=== PATIENT | female | born 1960 | race Caucasian/White ===

== ENCOUNTER → 2020-04-26 10:14 | Outpatient (BNVA) | payer MEDICAID, SELFPAY | PROVIDERS: Visit Provider Nurse Practitioner Family | DX: E11.42 Type 2 diabetes mellitus with diabetic polyneuropathy (principal); E78.2 Mixed hyperlipidemia; I10 Essential (primary) hypertension; M19.90 Unspecified osteoarthritis, unspecified site; F32.9 Major depressive disorder, single episode, unspecified; Z86.19 Personal history of other infectious and parasitic diseases | CPT/HCPCS: 80053; 80061; 83036; 84443; 85025 ==

== ENCOUNTER → 2020-05-21 15:00 | Outpatient (BNVA) | payer MEDICAID, SELFPAY | PROVIDERS: Visit Provider Internal Medicine | DX: B19.20 Unspecified viral hepatitis C without hepatic coma (principal); Z86.19 Personal history of other infectious and parasitic diseases; Z12.11 Encounter for screening for malignant neoplasm of colon; R10.13 Epigastric pain; R10.11 Right upper quadrant pain; F17.219 Nicotine dependence, cigarettes, with unspecified nicotine-induced disorders | CPT/HCPCS: 82105; 87522 ==

== ENCOUNTER → 2020-06-04 11:59 | Outpatient (BNVA) | payer MEDICAID, SELFPAY | PROVIDERS: Visit Provider Internal Medicine | DX: Z11.59 Encounter for screening for other viral diseases (principal) | CPT/HCPCS: 87635 ==

== ENCOUNTER 2020-06-07 07:30 | Day surgery (SDC) | payer MEDICAID, SELFPAY ==
[2020-06-06 08:14] VITALS: BMI 28.3
[2020-06-07 07:59] VITALS: BP 135/87; PULSE 72; RESP 16; TEMP 36.8; O2SAT 99
[2020-06-07] MEDS: sodium chloride 0.9% 1,000 ML 30 ML IV (08:16)
--- NOTE | 2020-06-07 08:23 | ANES.PREANE2 ---
Pre-Anesthetic Assessment Pre-Anesthetic Assessment: Height/Weight: Height 1.65 m Weight 77.111 kg Temp Pulse Resp BP Pulse Ox 98.2 F 72 16 135/87 99 06/07/20 07:59 06/07/20 07:59 06/07/20 07:59 06/07/20 07:59 06/07/20 07:59 Preop Diagnosis: e c Proposed Procedure: Operation Date: 06/07/20 09:00 Proposed Procedures p EGD/colon 13504 [id number] R10.13 Z12.11(Not Applicable) - Trung Charles MD s Colonoscopy(Not Applicable) - Trung Charles MD Familial anesthetic complications: None Was Beta Pelon taken within 24 hours: N/A Last intake: Intake Last Liquid Date 06/06/20 Last Liquid Time 22:00 Last Solid Date 06/05/20 Last Solid Time 22:00 Social: Social History: Tobacco Exam: Pre-Anes Outpt Exam: alert, oriented x 3, clear to auscultation bilaterally and regular rate & rhythm Airway: Cervical ROM: WNL MP: 4 Dentition: Other (no teeth) CV/HEM: CV/HEM: HTN Hepatic: Comments: hep c - normal [facility] in march Metabolic: Metabolic: DM and Hyperlipidemia Anesthetic Plan: ASA status: 2 Anesthesia: MAC Risk of > 500 ml blood loss (7ml/kg in children): No Meds/Allergies Current Medications: Current Medications Generic Name Dose Route Start Last Admin Trade Name Freq PRN Reason Stop Dose Admin Sodium Chloride 1,000 mls @ 30 ml s/hr 06/07/20 07:45 06/07/20 08:16 Sodium Chloride 0.9% IV 06/08/20 07:44 30 mls/hr .Q24H RICCO Administration PFSH Anesthesia PFSH: Medical History Chronic osteoarthritis Depression Diabetes mellitus Diabetic peripheral neuropathy History of hepatitis C Hyperlipidemia Hypertension Surgical History 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 Hx of tubal ligation 1987 Social History Smoking and tobacco status: current every day smoker cigarettes Packs smoked per day: 0.5 Second hand smoke exposure: No Alcohol intake: former Desire information about alcohol rehabilitation?: No Counseling given: No Desire information about substance/drug rehabilitation?: No Counseling given: No Adopted: No Caregiver/support person: No Lives independently: Yes Household members: spouse Housing: House Marital status: Number of children: 3 Highest education level completed: Some College, No Degree Current occupational status: unemployed Pets and animals: Yes Pets & animals: dog(s) and turtle(s) History of recent travel: No Female Reproductive History: Para: 3 Data Anesthesia Cardiac Studies: No Data to Display
[2020-06-07 08:25] LABS: Glucose Point of Care 182 mg/dL (70-110)
--- NOTE | 2020-06-07 09:14 | W.PM.OPSUD ---
Surgery/Procedure H&P Update DATE OF PROCEDURE: June 07, 2020 DATE H&P PERFORMED: 05/21/20 PREOP DIAGNOSIS: e c PLANNED PROCEDURE: Operation Date: 06/07/20 09:00 Proposed Procedures p EGD/colon 01381 [id number] R10.13 Z12.11(Not Applicable) - Trung Charles MD s Colonoscopy(Not Applicable) - Trung Charles MD
[2020-06-07 09:37] VITALS: BP 108/64; PULSE 73; RESP 20; TEMP 36.2; O2SAT 97
[2020-06-10 07:06] LABS: H. Pylori / CLO Test Negative
== END 2020-06-07 10:00 | disposition home or self-care (01) ==
PROVIDERS: Visit Provider Internal Medicine
PROC: 0DJ08ZZ Inspection of Upper Intestinal Tract, Via Natural or Artificial Opening Endoscopic (ICD-10-PCS; CPT 43235; principal; 2020-06-07 09:00)
PROC: 0DJD8ZZ Inspection of Lower Intestinal Tract, Via Natural or Artificial Opening Endoscopic (ICD-10-PCS; CPT 45378; 2020-06-07 09:00)
DX: Z12.11 Encounter for screening for malignant neoplasm of colon (principal); K29.70 Gastritis, unspecified, without bleeding; K21.0 Gastro-esophageal reflux disease with esophagitis; E11.42 Type 2 diabetes mellitus with diabetic polyneuropathy; Z79.84 Long term (current) use of oral hypoglycemic drugs; I10 Essential (primary) hypertension; F17.210 Nicotine dependence, cigarettes, uncomplicated; Z86.19 Personal history of other infectious and parasitic diseases
CPT/HCPCS: 12345; 36416; 43239; 45378; 82962; 87077; J2704; J7030

== ENCOUNTER 2020-06-11 08:17 | Outpatient (CLI) | payer MEDICAID, SELFPAY ==
--- NOTE | 2020-06-11 08:45 | US_ITS ---
WS: [id number] RIGHT UPPER QUADRANT ULTRASOUND HISTORY: RUQ pain COMPARISON: 08/01/2019 Liver: 15.5 cm in length. Normal size liver. Mild surface irregularity suggesting cirrhosis. No intra hepatic ductal dilatation or mass. Gallbladder: Normally distended gallbladder with no stones or wall thickening. CBD: 0.4 cm Pancreas: Normal size and echogenicity. Right kidney: 10.4 cm in length. Normal size and echogenicity. No hydronephrosis or mass. Aorta and IVC: Unremarkable abdominal aorta and IVC. No ascites. US/US gall bladder [id number] IMPRESSION: 1. Normal gallbladder. 2. Suspect mild cirrhosis.
== END 2020-06-11 08:18 | disposition home or self-care (01) ==
LOC: US 08:18
PROVIDERS: PCP Nurse Practitioner Family; Visit Provider Internal Medicine
DX: R10.11 Right upper quadrant pain (principal)
CPT/HCPCS: 76705

== ENCOUNTER 2020-06-12 12:15 | Outpatient (CLI) | payer MEDICAID, SELFPAY ==
[2020-06-12] MEDS: iohexol 300 mg/mL 50 mL Btl IV (13:57)
--- NOTE | 2020-06-12 14:00 | CT_ITS ---
WS: [id number] CT ABDOMEN PELVIS TECHNIQUE: Noncontrast CT of the abdomen and pelvis with coronal and sagittal reformatted images. CLINICAL INFORMATION: Epigastric pain, history of hepatitis c COMPARISON: None. DLP: 1001.[address] scans at [facility] use at least one of these dose optimization techniques: automat ed exposure control; mA and/or kV adjustment per patient size (includes targeted exams where dose is matched to clinical indication); or iterative reconstruction. FINDINGS: Liver size upper limits of normal measuring 15.0 CM. No intrahepatic biliary ductal dilatation. Maggie l gallbladder. Normal spleen. Normal GE junction. Lung bases are well aerated. Adrenal glands are nor mal. No hydronephrosis. Normal noncontrast pancreas. Normal caliber abdominal aorta. Mild aortic calc ification. Sigmoid diverticulosis. No evidence of acute diverticulitis. No evidence of small or large bowel obst ruction. Normal appendix. No abdominal or pelvic lymphadenopathy. Pelvic phleboliths. Degenerative ar thritis with sclerotic endplate-type changes at L2-3. CT/CT abdomen pelvis wo con [id number] IMPRESSION: 1. Liver size upper limits of normal measuring 15 cm otherwise unremarkable in appearance. 2. No intrahepatic biliary duct dilatation. 3. No hydronephrosis in either kidney. No obstructing renal or ureteral calcul i. 4. Normal caliber abdominal aorta. 5. Sigmoid diverticulosis. No evidence of acute diverticulitis.
== END 2020-06-12 12:16 | disposition home or self-care (01) ==
LOC: RADWPI 12:18
PROVIDERS: Family Provider Nurse Practitioner Family; PCP Nurse Practitioner Family; Visit Provider Internal Medicine
DX: R10.13 Epigastric pain (principal); Z86.19 Personal history of other infectious and parasitic diseases; K57.30 Diverticulosis of large intestine without perforation or abscess without bleeding
CPT/HCPCS: 74176; Q9967

== ENCOUNTER → 2020-07-24 09:35 | Outpatient (BNVA) | payer MEDICAID, SELFPAY | PROVIDERS: Family Provider Nurse Practitioner Family; PCP Nurse Practitioner Family; Visit Provider Nurse Practitioner Family | DX: E11.42 Type 2 diabetes mellitus with diabetic polyneuropathy (principal); E78.2 Mixed hyperlipidemia; M19.90 Unspecified osteoarthritis, unspecified site; F32.9 Major depressive disorder, single episode, unspecified; I10 Essential (primary) hypertension; Z23 Encounter for immunization | CPT/HCPCS: 80053; 80061; 83036; 84443; 85025 ==

== ENCOUNTER 2020-12-07 17:15 | Emergency (ER) | payer MEDICAID, SELFPAY ==
--- NOTE | 2020-12-07 17:23 | XRR_ITS ---
PROCEDURE INFORMATION: Exam: XR Chest Exam date and time: 12/07/2020 5:34 PM Age: 60 years old Clinical indication: Cough and dyspnea; Additional info: Dyspnea/cough TECHNIQUE: Imaging protocol: XR of the chest Views: 1 view. COMPARISON: No relevant prior studies available. FINDINGS: Lungs: No consolidative pulmonary infiltrates are noted. Pleural spaces: Unremarkable. No pleural effusion. No pneumothorax. Heart/Mediastinum: No cardiomegaly. Bones/joints: Degenerative spine changes are noted. XR/XR chest 1V portable [id number] IMPRESSION: No acute cardiopulmonary disease demonstrated.
[2020-12-07 17:35] VITALS: BP 169/79; PULSE 73; RESP 18; TEMP 36.9; O2SAT 98; BMI 27.4
--- NOTE | 2020-12-07 17:39 | ED_ITS ---
HPI - Abdominal Pain General: Chief Complaint: Abdominal Pain Stated Complaint: N/V Time Seen by Provider: 12/07/20 17:37 Source: patient Mode of arrival: ambulatory Limitations: no limitations History of Present Illness: HPI narrative: 60-year-old female comes in today with diffuse mild to moderate abdominal discomfort. Patient had severe nausea and vomiting starting this morning. Patient does have a history of diabetes mellitus, hypertension, and hyperlipidemia. Patient is alert and oriented appears mildly unwell. Patient does appear in moderate to severe pain. 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 Hx of tubal ligation 1987 Social History Smoking and tobacco status: current every day smoker cigarettes Packs smoked per day: 0.5 Second hand smoke exposure: No Alcohol intake: former Desire information about alcohol rehabilitation?: No Counseling given: No Desire information about substance/drug rehabilitation?: No Counseling given: No Adopted: No Caregiver/support person: No Lives independently: Yes Household members: spouse Housing: House Marital status: Number of children: 3 Highest education level completed: Some College, No Degree Current occupational status: unemployed Pets and animals: Yes Pets & animals: dog(s) and turtle(s) History of recent travel: No Female Reproductive History: Para: 3 Physical Exam Const: COMMON NORMALS: no acute distress and patient oriented x3 GENERAL APPEARANCE: cooperative HENMT: COMMON NORMALS: normocephalic and Normal external nose present HEAD & SCALP: normal to inspection and normocephalic NOSE: Normal external nose present MOUTH: Normal oral and palatal mucosa present and other (Mild dry oral mucosa) THROAT: posterior oropharynx normal Eye: GENERAL EYE: appearance normal, both eyes and all related structures Neck/C-Spine: COMMON NORMALS: full ROM Lymph: LYMPHATIC: no lymphadenopathy noted Chest: COMMONS NORMALS: normal inspection of the chest Resp: COMMON NORMALS: normal respiratory effort EFFORT & INSPECTION: Yes able to speak in complete sentences Cardio: COMMON NORMALS: regular rate and regular rhythm RATE: regular rate RHYTHM: regular rhythm GI: COMMON NORMALS: Soft to palpation PALPATION: Yes Soft to palpation and Yes Tenderness to palpation present (GI) (Generalized mild abdominal tenderness) Back/Pelvis: COMMON NORMALS: thoracic and lumbar spine normal to inspection Extremity: COMMON NORMALS: normal to inspection Neuro: COMMON NORMALS: patient oriented x3 and moves all extremities Psych: COMMON NORMALS: mental status grossly normal and cooperative Skin: COMMON NORMALS: no rashes or lesions noted GENERAL SKIN EXAM: no rashes or lesions noted Course ED course: 1843, patient reports improvement in symptoms. Patient is resting well. Patient states that abdominal pain has subsided significantly. Laboratory values noted some mild leukocytosis with some elevation in red blood cell count, CMP noted a mild decrease in sodium at 133 and a blood glucose of 272 with no other significant abnormalities. Lipase was normal. We are waiting CT of the abdomen and pelvis with contrast result, and urinalysis result. At this time suspect a gastroenteritis with mild dehydration. 1929, urinalysis showed nitrates and white blood cells in the urine. CT noted no significant abnormality. Suspect patient has a episode of gastroenteritis with urinary tract infection. Vital Signs: Vital signs: Vital Signs Temperature 98.4 F 12/07/20 17:35 Pulse Rate 97 12/07/20 20:12 Respiratory Rate 18 12/07/20 17:35 Blood Pressure 152/108 12/07/20 20:12 Pulse Oximetry 97 12/07/20 20:12 MDM - Abdominal Pain MDM Narrative: Medical decision making narrative: Patient comes in today for complaints of nausea and vomiting and diffuse abdominal pain. On exam abdomen is soft with some mild tenderness. Bowel sounds are present. Skin is warm and dry. Vital signs are normal except for some elevation in blood pressure. Heart rates regular, lungs are clear to auscultation. Differential diagnosis includes but not limited to cryptitis, cholecystitis, gastroenteritis, gastritis, ACS. CT scan noted no significant abnormality possible enteritis. CBC noted a mild leukocytosis of 13,000, and some elevated hemoglobin at 15.9. Sodium was 133, and blood sugar was 272. Urinalysis had positive nitrates and white blood cells in urine. Reviewed exam with patient recommended treatment for gastroenteritis and urinary tract infection. Patient reported understanding agreed to plan. Another consideration for patient may be gastro paresis secondary to diabetes, due to patient's concern of occasional episodes of nausea and emesis that is not as severe as what was going on over the last 12 to 24 hours. Lab Data: Labs: Lab Results 12/07/20 12/07/20 12/07/20 Range/Units 17:50 17:50 17:50 WBC 13.1 H (4.0-10.0) 10^3/ uL RBC 5.47 H (4.1-5.3) 10^6/u L Hgb 15.9 H (11.5-15.3) g/dL Hct 45.9 (37.0-47.0) % MCV 83.9 (81-99) fL MCH 29.1 (28.0-34.0) pg MCHC 34.6 (30.0-36.0) g/dL RDW 12.0 L (12.1-15.1) % Plt Count 292 (130-400) 10^3/c mm MPV 10.1 (7.4-10.4) fL Neut % (Auto) 83.0 % Lymph % (Auto) 12.5 % [place] % (Auto) 3.2 % Eos % (Auto) 0.5 % Baso % (Auto) 0.5 % Neut # (Auto) 10.85 H (1.8-7.7) 10^3/u L Lymph # (Auto) 1.6 (0.8-4.8) 10^3/u L [place] # (Auto) 0.4 (0.2-0.9) 10^3/u L Eos # (Auto) 0.1 (0.0-0.8) 10^3/u L Baso # (Auto) 0.1 (0.0-0.1) 10^3/u L Nucleated RBC % (a uto) 0 % Nucleated RBCs # 0.0 /100WBC Sodium 133 L (136-145) mmol/L Potassium 3.7 (3.5-5.1) mmol/L Chloride 95 L (98-107) mmol/L Carbon Dioxide 26 (22-29) mmol/L Anion Gap 15.7 (5-19) BUN 15 (6-20) mg/dL Creatinine 0.6 (0.5-0.9) mg/dL GFR Calculation 102.3 (90-130) mL/min Glucose 272 H (65-115) mg/dL Calculated Osmolal ity 286 (285-295) mOsm/k g Calcium 9.8 (8.5-10.5) mg/dL Total Bilirubin 0.6 (0.15-1.2) mg/dL AST 10 (0-32) U/L ALT 13 (0-33) U/L Alkaline Phosphata se 110 H (35-105) IU/L Troponin T Baselin e 9 (0-10) ng/L Total Protein 7.8 (6.6-8.7) g/dL Albumin 4.5 (3.5-5.2) g/dL Globulin 3.3 (1.3-4.6) g/dL Lipase 17 (13-60) U/L Urine Color (Yellow) Urine Appearance (CLEAR) Urine pH (5-7) Ur Specific Gravit y (1.005-1.030) Urine Protein (Negative) Urine Glucose (UA) (Normal) Urine Ketones (Negative) Urine Blood (Negative) Urine Nitrate (Negative) Urine Bilirubin (Negative) Urine Urobilinogen (Negative) mg/dL Ur Leukocyte Dianna ase (Negative) Urine RBC (0-2) /hpf Urine WBC (0-5) /hpf Ur Squamous Epith Cells (0-5) /hpf Amorphous Sediment Urine Bacteria (NONE) /hpf Urine Mucus /hpf 12/07/20 Range/Units 17:50 WBC (4.0-10.0) 10^3/ uL RBC (4.1-5.3) 10^6/u L Hgb (11.5-15.3) g/dL Hct (37.0-47.0) % MCV (81-99) fL MCH (28.0-34.0) pg MCHC (30.0-36.0) g/dL RDW (12.1-15.1) % Plt Count (130-400) 10^3/c mm MPV (7.4-10.4) fL Neut % (Auto) % Lymph % (Auto) % [place] % (Auto) % Eos % (Auto) % Baso % (Auto) % Neut # (Auto) (1.8-7.7) 10^3/u L Lymph # (Auto) (0.8-4.8) 10^3/u L [place] # (Auto) (0.2-0.9) 10^3/u L Eos # (Auto) (0.0-0.8) 10^3/u L Baso # (Auto) (0.0-0.1) 10^3/u L Nucleated RBC % (a uto) % Nucleated RBCs # /100WBC Sodium (136-145) mmol/L Potassium (3.5-5.1) mmol/L Chloride (98-107) mmol/L Carbon Dioxide (22-29) mmol/L Anion Gap (5-19) BUN (6-20) mg/dL Creatinine (0.5-0.9) mg/dL GFR Calculation (90-130) mL/min Glucose (65-115) mg/dL Calculated Osmolal ity (285-295) mOsm/k g Calcium (8.5-10.5) mg/dL Total Bilirubin (0.15-1.2) mg/dL AST (0-32) U/L ALT (0-33) U/L Alkaline Phosphata se (35-105) IU/L Troponin T Baselin e (0-10) ng/L Total Protein (6.6-8.7) g/dL Albumin (3.5-5.2) g/dL Globulin (1.3-4.6) g/dL Lipase (13-60) U/L Urine Color Yellow (Yellow) Urine Appearance Hazy A (CLEAR) Urine pH 7 (5-7) Ur Specific Gravit y 1.005 (1.005-1.030) Urine Protein Neg (Negative) Urine Glucose (UA) 2+ (Normal) Urine Ketones Negative (Negative) Urine Blood Neg (Negative) Urine Nitrate Positive H (Negative) Urine Bilirubin Neg (Negative) Urine Urobilinogen Norm (Negative) mg/dL Ur Leukocyte Dianna ase Trace H (Negative) Urine RBC None (0-2) /hpf Urine WBC 15-25 H (0-5) /hpf Ur Squamous Epith Cells 5-10 H (0-5) /hpf Amorphous Sediment Not Reportable Urine Bacteria 3+ H (NONE) /hpf Urine Mucus 1+ /hpf EKG Data ^: EKG 1: Attestation: I personally reviewed and interpreted this EKG as follows: (1845, EKG shows a sinus rhythm with a regular rate at [address] elevation or ectopy is noted. No EKG was available for immediate comparison.) Discharge Plan Discharge Patient Disposition: Home Clinical Impression: Gastroenteritis, UTI (urinary tract infection) due to Enterococcus Condition: Stable Prescriptions: New Macrobid 100 mg capsule 100 mg PO BID 5 Days Qty: 10 RF: 0 ondansetron HCl 4 mg tablet 4 mg PO Q8H PRN (Reason: Nausea And Vomiting) 3 Days Qty: 9 RF: 0 No Action (DME) Blood Glucose Test Strip See Rx Instructions .ROUTE .MEDSUPPLY Qty: 100 RF: 11 (DME) lancets [Super Thin Lancets] Misc See Rx Instructions .ROUTE .MEDSUPPLY Qty: 100 RF: 11 (DME) blood-glucose meter [Blood Glucose Monitoring] Kit See Rx Instructions .ROUTE .MEDSUPPLY Qty: 1 RF: 0 atorvastatin 20 mg tablet 20 mg PO DAILY 30 Days Qty: 30 RF: 2 gabapentin 400 mg capsule 400 mg PO BID 30 Days Qty: 60 RF: 2 glipizide 5 mg tablet 5 mg PO BID 30 Days Qty: 60 RF: 2 meloxicam 7.5 mg tablet 7.5 mg PO BID 30 Days Qty: 60 RF: 2 metformin 1,000 mg tablet 1,000 mg PO BID 30 Days Qty: 60 RF: 2 Trintellix 10 mg tablet 10 mg PO DAILY 30 Days Qty: 30 RF: 2 lisinopril 20 mg tablet 20 mg PO DAILY 30 Days Qty: 30 RF: 2 albuterol sulfate [ProAir HFA] 90 mcg/actuation HFA aerosol inhaler 1 puff inhalation QID PRN (Reason: shortness of breath or wheezing) 30 Days Qty: 6.7 RF: 2 fluticasone propionate [Flonase Allergy Relief] 50 mcg/actuation spray,suspension 2 spray intranasal DAILY 30 Days Qty: 9.9 RF: 2 promethazine-DM 6.25-15 mg/5 mL syrup 5 ml PO Q6H PRN (Reason: cough) 7 Days Qty: 118 RF: 0 pantoprazole 40 mg tablet,delayed release (DR/EC) 40 mg PO DAILY Qty: 30 RF: 8 Discharge Orders: Discharge ED (Routine); Ordered 12/07/20 Ordered By: Ubaldo Lopez Referrals: Erin Brown FNP-C [Primary Care Provider] - Discharge Diet: Advance as tolerated Discharge Activity: Increase activity as tolerated Patient Instructions: Acute Nausea and Vomiting (ED), Opioid Safety Activity Restrictions/Additional Instructions: Drink plenty of fluids. Drink frequent small sips of water in order to maintain hydration. Use medication for nausea and vomiting as directed. Take antibiotic twice a day for the next 5 days for urinary tract infection. Follow-up with primary care in 1 week for recheck of urine. Return to the emergency department for new concerns or worsening symptoms. Coding Level of Care Code ED Extractor Operator for [facility] Fwd Exam Comprehensive
[2020-12-07] MEDS: sodium chloride 0.9% 1,000 ML 999 ML IV (17:46)
[2020-12-07] MEDS: ondansetron 2 mg/ML SDV 2 mL 4 MG IVP (17:46)
[2020-12-07 17:51] VITALS: BP 179/96; PULSE 77; O2SAT 98
--- NOTE | 2020-12-07 17:52 | CTR_ITS ---
PROCEDURE INFORMATION: Exam: CT Abdomen And Pelvis With Contrast Exam date and time: 12/07/2020 6:09 PM Age: 60 years old Clinical indication: Abdominal pain; Generalized; Patient HX: C/O abd pain w n/v; Additional info: Diffuse abd pain, n/v TECHNIQUE: Imaging protocol: Computed tomography of the abdomen and pelvis with contrast. Radiation optimization: All CT scans at this facility use at least one of these dose optimization techniques: automated exposure control; mA and/or kV adjustment per patient size (includes targeted exams where dose is matched to clinical indication); or iterative reconstruction. Contrast material: OMNI 300; Contrast volume: 95 ml; Contrast route: INTRAVENOUS (IV); COMPARISON: CT abdomen pelvis wo con [id number] 06/12/2020 1:49 PM RADIATION DOSE METRICS: Total DLP (mGy-cm): 1471.22 FINDINGS: Lungs: No significant abnormaility demonstrated. Liver: The liver is unremarkable in appearance. Gallbladder and bile ducts: No calcified gallstones in the gallbladder. No gallbladder wall thickening. No pericholecystic fluid. No biliary dilatation. Pancreas: The pancreas is normal in appearance. No pancreatic duct dilatation. Spleen: The spleen is normal in size and appearance. Adrenal glands: The adrenal glands appear within normal limits. Kidneys and ureters: The kidneys are normal in morphology. No hydronephrosis. No solid mass. Stomach and bowel: Stomach is almost completely empty. No acute gastric abnormality. The proximal small bowel demonstrates mild mural thickening, which may be secondary to transient peristalsis versus mild enteritis. No bowel obstruction. Moderate retained stool throughout the colon. No inflammatory change of the colon. Appendix: The appendix is normal in appearance. No evidence of appendicitis. Intraperitoneal space: No free air. No significant fluid collection. Vasculature: The aorta is atherosclerotic. No aortic aneurysm. Lymph nodes: No pathologically enlarged lymph nodes are demonstrated. Urinary bladder: The urinary bladder is unremarkable in appearance. Reproductive: Uterus and adnexa appear unremarkable. Bones/joints: Mild scoliosis of the lumbar spine. Advanced degenerative disc change at L2-L3 and L4-L5. Soft tissues: The soft tissues appear unremarkable. CT/CT abdomen pelvis w con* [id number] IMPRESSION: 1. The proximal small bowel demonstrates mild mural thickening, which may be secondary to transient peristalsis versus mild enteritis. The appearance is similar to 06/12/2020. No bowel obstruction demonstrated. 2. No acute abnormality demonstrated of the solid organs. 3. There is no significant change from the prior examination. Radiation Dose CTDIVOL = (mGy): DLP = 1471.22 (mGy-cm)
[2020-12-07] MEDS: morphine 4 mg/mL SDV 1 mL IVP (17:58)
[2020-12-07 17:59] LABS: Basophils # 0.1 10^3/uL (0.0-0.1); Basophils % 0.5 %; Eosinophils # 0.1 10^3/uL (0.0-0.8); Eosinophils % 0.5 %; Hematocrit 45.9 % (37.0-47.0); Hemoglobin 15.9 g/dL (11.5-15.3); Lymphocytes # 1.6 10^3/uL (0.8-4.8); Lymphocytes % 12.5 %; Mean Corpuscular HGB Conc 34.6 g/dL (30.0-36.0); Mean Corpuscular Hemoglobin 29.1 pg (28.0-34.0); Mean Corpuscular Volume 83.9 fL (81-99); Mean Platelet Volume 10.1 fL (7.4-10.4); Monocytes # 0.4 10^3/uL (0.2-0.9); Monocytes % 3.2 %; Neutrophils # 10.85 10^3/uL (1.8-7.7); Nucleated Red Blood Cells % 0 %; Platelet Count 292 10^3/cmm (130-400); Red Blood Count 5.47 10^6/uL (4.1-5.3); White Blood Count 13.1 10^3/uL (4.0-10.0)
[2020-12-07] MEDS: iohexol 300 mg/mL 100 mL Btl IV (18:16)
[2020-12-07 18:28] LABS: Alanine Aminotransferase 13 U/L (0-33); Albumin Level 4.5 g/dL (3.5-5.2); Alkaline Phosphatase 110 IU/L (35-105); Anion Gap 15.7 (5-19); Aspartate Amino Transferase 10 U/L (0-32); Blood Urea Nitrogen 15 mg/dL (6-20); Calcium 9.8 mg/dL (8.5-10.5); Carbon Dioxide 26 mmol/L (22-29); Chloride 95 mmol/L (98-107); Globulin 3.3 g/dL (1.3-4.6); Glomerular Filtration Rate 102.3 mL/min (90-130); Glucose 272 mg/dL (65-115); Lipase 17 U/L (13-60); Osmolality Calculated 286 mOsm/kg (285-295); Potassium 3.7 mmol/L (3.5-5.1); Sodium 133 mmol/L (136-145); Total Bilirubin 0.6 mg/dL (0.15-1.2); Total Protein 7.8 g/dL (6.6-8.7)
[2020-12-07] MEDS: lactated ringers 1,000 ML 999 ML IV (18:49)
[2020-12-07 18:55] LABS: Troponin(5th) Baseline 9 ng/L (0-10)
[2020-12-07 19:19] LABS: Bilirubin Urine Neg (Negative); Blood Urine Neg (Negative); Glucose Urine UA 2+ (Normal); Ketones Urine Negative (Negative); Nitrate Urine Positive (Negative); Protein Urine Neg (Negative); Specific Gravity, Urine 1.005 (1.005-1.030); Urine Appearance Hazy (CLEAR); Urine Color Yellow (Yellow); pH Urine 7 (5-7)
[2020-12-07 19:20] LABS: Add Urine Microscopic? YES; Leukocyte Esterase Urine Trace (Negative); Urobilinogen Urine Norm (Negative)
[2020-12-07 19:25] LABS: WBC Urine 15-25 /hpf (0-5)
[2020-12-07 19:26] LABS: Mucus Urine 1+ /hpf
[2020-12-07 19:27] LABS: Add Urine Culture? Yes; Bacteria Urine 3+ /hpf
[2020-12-07] MEDS: cefTRIAXone 1,000 MG in sodium chloride 0.9% (plus) 50 ML 100 MG IV (19:33)
[2020-12-07 19:35] VITALS: PULSE 75; O2SAT 99
[2020-12-07] MEDS: metoclopramide 5 mg/mL SDV 2 mL 10 MG IVP (19:41)
[2020-12-07 20:12] VITALS: BP 152/108; PULSE 97; O2SAT 97
== END 2020-12-07 20:14 | disposition home or self-care (01) ==
PROVIDERS: Emergency Provider Nurse Practitioner Family; PCP Nurse Practitioner Family
DX: K52.9 Noninfective gastroenteritis and colitis, unspecified (principal); N39.0 Urinary tract infection, site not specified; B95.2 Enterococcus as the cause of diseases classified elsewhere; Z79.84 Long term (current) use of oral hypoglycemic drugs; E11.42 Type 2 diabetes mellitus with diabetic polyneuropathy; Z86.19 Personal history of other infectious and parasitic diseases; E78.5 Hyperlipidemia, unspecified; I10 Essential (primary) hypertension; F17.210 Nicotine dependence, cigarettes, uncomplicated
CPT/HCPCS: 71045; 74177; 80053; 81001; 83690; 84484; 85025; 87077; 87086; 87186; 96361; 96365; 96375; 99284; J0696; J2270; J2405; J2765; J7030; Q9967

== ENCOUNTER → 2020-12-23 11:12 | Outpatient (BNVA) | payer MEDICAID, SELFPAY | PROVIDERS: PCP Nurse Practitioner Family; Visit Provider Nurse Practitioner Family | DX: N39.0 Urinary tract infection, site not specified (principal); E78.2 Mixed hyperlipidemia; I10 Essential (primary) hypertension; E11.42 Type 2 diabetes mellitus with diabetic polyneuropathy; M19.90 Unspecified osteoarthritis, unspecified site; Z86.19 Personal history of other infectious and parasitic diseases; R31.9 Hematuria, unspecified | CPT/HCPCS: 80053; 80061; 81000; 83036; 84443; 85025 ==

== ENCOUNTER → 2021-08-27 11:48 | Outpatient (BNVA) | payer MEDICAID, SELFPAY | PROVIDERS: PCP Nurse Practitioner Family; Visit Provider Nurse Practitioner Family | DX: E11.9 Type 2 diabetes mellitus without complications (principal); E78.2 Mixed hyperlipidemia; J06.9 Acute upper respiratory infection, unspecified; M19.90 Unspecified osteoarthritis, unspecified site; E11.42 Type 2 diabetes mellitus with diabetic polyneuropathy; H65.193 Other acute nonsuppurative otitis media, bilateral; I10 Essential (primary) hypertension; K21.9 Gastro-esophageal reflux disease without esophagitis | CPT/HCPCS: 80053; 80061; 83036; 84443; 85025 ==

== ENCOUNTER → 2022-01-01 10:38 | Outpatient (BNVA) | payer MEDICAID, SELFPAY | PROVIDERS: PCP Nurse Practitioner Family; Visit Provider Nurse Practitioner Family | DX: M19.041 Primary osteoarthritis, right hand (principal) | CPT/HCPCS: 73130; 84550; 85025 ==

== ENCOUNTER → 2022-01-08 14:14 | Outpatient (BNVA) | payer MEDICAID, SELFPAY | PROVIDERS: PCP Nurse Practitioner Family; Visit Provider Nurse Practitioner Family | DX: M25.541 Pain in joints of right hand (principal) | CPT/HCPCS: 85025 ==

== ENCOUNTER → 2022-01-20 10:14 | Outpatient (BNVA) | payer MEDICAID, SELFPAY | PROVIDERS: PCP Nurse Practitioner Family; Visit Provider Orthopaedic Surgery | DX: L02.511 Cutaneous abscess of right hand (principal); F17.210 Nicotine dependence, cigarettes, uncomplicated | CPT/HCPCS: 99203 ==

== ENCOUNTER 2022-01-22 13:56 | Day surgery (SDC) | payer MEDICAID, SELFPAY ==
[2022-01-21 13:40] VITALS: BMI 28.3
[2022-01-22] VITALS (12 sets, daily range): BP systolic 141–187; BP diastolic 74–116; PULSE 67–93; RESP 14–18; TEMP 36.2–36.5; O2SAT 94–98
[2022-01-22 14:27] LABS: Glucose Point of Care 172 mg/dL (70-110)
--- NOTE | 2022-01-22 14:35 | P.ANESASSM_ITS ---
Pre-Anesthetic Assessment Height/Weight: Height 1.65 m Weight 77.111 kg Temp Pulse Resp BP Pulse Ox 97.6 F 84 16 141/79 97 01/22/22 14:13 01/22/22 14:32 01/22/22 14:32 01/22/22 14:32 01/22/22 14:32 Preop Diagnosis: 1!!!Abscess right hand Operation Date: 01/22/22 16:10 Proposed Procedures p Incision & Drainage Upper Extremity/66639/abscess of right hand L02.511(Right) - Deandre Worthy MD Familial anesthetic complications: none Was Beta Pelon taken within 24 hours: N/A Was Clonidine taken within 24 hours: N/A Last intake: Intake Last Liquid Date 01/22/22 Last Liquid Time 09:30 Last Solid Date 01/21/22 Last Solid Time 21:30 Social Tobacco and No alcohol Exam alert, oriented x 3 and regular rate & rhythm lungs diminished breath sounds left side compared to right Airway Submandibular: within normal limits Cervical ROM: within normal limits Mallampati: Class I Dentition: false Pulmonary None reported Hx of recurrent aspiration events CV/HEM Hypertension METS > 4 None reported Hepatic Hepatitis (Hepatitis C) GI Gastroesophageal Reflux Disease (well controlled ) Hx of recurrent aspiration patient describes as coughing on her own saliva not gastric contents, no hx of lung complications due to aspiration Metabolic Diabetes Mellitus (Denies symptoms of reflux on empty stomach) Musc/skel Osteoarthritis/DJD Abscess hand right TMJ Neuropsych Depression and Neuropathy Anesthetic Plan ASA status: 3 (61 year old female smoker with HTN, depression, DM w/ neuropathy, and hepatatis C hx . ) Anesthesia: Anesthesia Evaluation and General Other: We discussed risk and benefits of general anesthesia including PONV, sore throat (sometimes severe), corneal abrasion, positioning and peripheral nerve injuries, life threatening allergic reaction, post operative ICU admission requiring prolonged intubation, stroke, heart attack, , and rare incidences of recall. Patient consents to proceed with general anesthesia. Risk of > 500 ml blood loss (7ml/kg in children): No Medications/Allergies Home Medications Medication Instructions Recorded Confirmed Last Taken Type blood sugar diagnostic (Blood #100 each 04/26/20 01/20/22 Unknown Rx Glucose Test) blood-glucose meter (Blood Glucose #1 each 04/26/20 01/20/22 Unknown Rx Monitoring) lancets (Super Thin Lancets) #100 each 04/26/20 01/20/22 Unknown Rx albuterol sulfate 90 mcg/actuation 1 puff INHALATION QID PRN 30 Days 08/27/21 01/22/22 01/21/22 Rx aerosol inhaler (ProAir HFA) #6.7 g atorvastatin 20 mg tablet 20 mg PO DAILY 30 Days #30 tab 08/27/21 01/22/22 01/21/22 Rx fluticasone propionate 50 2 spray INTRANASAL DAILY 30 Days 08/27/21 01/22/22 01/21/22 Rx mcg/actuation nasal #9.9 ml spray,suspension (Flonase Allergy Relief) gabapentin 400 mg capsule 400 mg PO BID 30 Days #60 cap 08/27/21 01/22/22 01/21/22 Rx losartan 50 mg tablet 50 mg PO DAILY #30 tab 08/27/21 01/22/22 01/21/22 Rx meloxicam 7.5 mg tablet 7.5 mg PO BID 30 Days #60 tab 08/27/21 01/22/22 01/21/22 Rx pantoprazole 40 mg tablet,delayed See Rx Instructions .ROUTE 08/27/21 01/22/22 01/21/22 Rx release .COMPLEX #30 tab empagliflozin 10 mg tablet 10 mg PO DAILY #30 tab 12/03/21 01/22/22 01/21/22 20:00 Rx (Jardiance) glipizide 5 mg tablet 5 mg PO BID 30 Days #60 tab 12/03/21 01/22/22 01/20/22 Rx metformin 1,000 mg tablet 1,000 mg PO BID 30 Days #60 tab 12/03/21 01/22/22 01/20/22 Rx alpha lipoic acid 600 mg tablet 600 mg PO DAILY 01/21/22 01/22/22 01/21/22 History lactobacillus combination no.4 3 1 cell PO DAILY 01/21/22 01/22/22 01/21/22 History billion cell capsule (Probiotic) Allergies Allergy/AdvReac Type Severity Reaction Status Date / Time tramadol [From Ultram] Allergy Mild itching Verified 01/21/22 13:32 COUNTS INCLUDE 234 BEDS AT THE [facility] Anesthesia Medical History Chronic osteoarthritis Depression Diabetes mellitus Diabetic peripheral neuropathy History of hepatitis C Hyperlipidemia Hypertension Surgical History 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 Hx of tubal ligation 1987 Social History Smoking and tobacco status: current every day smoker cigarettes Packs smoked per day: 0.5 Second hand smoke exposure: No Alcohol intake: former Desire information about alcohol rehabilitation?: No Counseling given: No Desire information about substance/drug rehabilitation?: No Counseling given: No Adopted: No Caregiver/support person: No Lives independently: Yes Household members: spouse Housing: House Marital status: Number of children: 3 Highest education level completed: Some College, No Degree Current occupational status: unemployed Pets and animals: Yes Pets & animals: dog(s) and turtle(s) History of recent travel: No Female Reproductive History Para: 3 Data Anesthesia Cardiac Studies: No Data to Display
[2022-01-22] MEDS: sodium chloride 0.9% 1,000 ML 30 ML IV (14:36)
--- NOTE | 2022-01-22 15:53 | W.PM.OPSUD ---
Surgery/Procedure H&P Update DATE OF PROCEDURE: January 22, 2022 DATE H&P PERFORMED: 01/20/22 H&P UPDATE INFORMATION: I have reviewed H&P completed within last 30 days PREOP DIAGNOSIS: 1!!!Abscess right hand PLANNED PROCEDURE: Operation Date: 01/22/22 16:10 Proposed Procedures p Incision & Drainage Upper Extremity/42701/abscess of right hand L02.511(Right) - Deandre Worthy MD
--- NOTE | 2022-01-22 16:06 | W.PM.OPSUD ---
Surgery/Procedure H&P Update DATE OF PROCEDURE: January 22, 2022 DATE H&P PERFORMED: 01/20/22 PREOP DIAGNOSIS: 1!!!Abscess right hand PLANNED PROCEDURE: Operation Date: 01/22/22 16:10 Proposed Procedures p Incision & Drainage Upper Extremity/90015/abscess of right hand L02.511(Right) - Deandre Worthy MD
--- NOTE | 2022-01-22 16:47 | PM.OP ---
Operative Report Date of procedure: January 22, 2022 Pre-op diagnosis: Preop Diagnosis Abscess right hand Post-op diagnosis: Same Procedure done: Incisional drainage abscess right hand Specimens removed/disposition: Routine anaerobic cultures sent swabs of the deep wound Surgeon: Deandre Worthy Anesthesia: MAC Estimated blood loss (mL): 2 Tourniquet time (min): 9 Findings: The patient had cloudy fluid in the interval between the deep fat and flexor tendons at the level of the little finger metacarpal phalangeal joint of the right hand. There is no evidence of a infected tenosynovitis or septic arthritis Brief History: The patient is a 61-year-old female with a 3-week history of a painful swelling on the ulnar border of her hand that failed to respond to p.o. antibiotics including most recent clindamycin. She is taken to the operating room for exploration of the hand, drainage of any potential infection and to obtain cultures Procedure: The patient was taken to the operating room and sedation was provided by the anesthesia service. She was given 2 g of Ancef. She was prepped and draped with her right hand exposed on the armboard. A tourniquet was inflated 250 mmHg. A V-shaped incision was made beginning over the ulnar border of the proximal interphalangeal fold extending proximally and medially and further proximally and laterally into the distal palm ending at the distal palmar crease. Dissection was carried down bluntly. Area of cloudy fluid was identified overlying the flexor tendons and the deep tissue. Routine and anaerobic cultures were sent. The wound was irrigated with saline. The skin was closed loosely with 3-0 Prolene. Xeroflo gauze 4 x 4's web roll and an Paul wrap were applied. The tourniquet was deflated. The patient was taken recovery room in stable condition.
--- NOTE | 2022-01-22 17:04 | ANE.PACU2 ---
Inpatient post-anesthesia follow up: Airway intact: Yes Vital signs: Temperature 97.1 F Pulse Rate 68 Respiratory Rate 16 Blood Pressure 172/92 Pulse Oximetry 95 Oxygen Delivery Me thod Room Air Oxygen Flow Rate 6 Fraction of Inspir ed Oxygen Hydration adequate: Yes Nausea and vomiting: No Pain level: 5 Mental status: Baseline
[2022-01-22] MEDS: HYDROmorphone 1 mg/mL INJ 1 mL 0.5 MG IVP (17:08)
== END 2022-01-22 18:05 | disposition home or self-care (01) ==
PROVIDERS: Visit Provider Orthopaedic Surgery
PROC: (CPT 10060; principal; 2022-01-22 16:10)
DX: L02.511 Cutaneous abscess of right hand (principal); I10 Essential (primary) hypertension; Z86.19 Personal history of other infectious and parasitic diseases; K21.9 Gastro-esophageal reflux disease without esophagitis; M19.90 Unspecified osteoarthritis, unspecified site; F17.210 Nicotine dependence, cigarettes, uncomplicated; F32.9 Major depressive disorder, single episode, unspecified; E11.42 Type 2 diabetes mellitus with diabetic polyneuropathy; E78.5 Hyperlipidemia, unspecified
CPT/HCPCS: 10060; 36416; 82962; 87070; 87075; 87077; 87186; 87205; J0690; J1170; J2250; J2704; J3010; J3490; J7030

== ENCOUNTER → 2022-01-27 09:19 | Outpatient (BNVA) | payer MEDICAID, SELFPAY | PROVIDERS: Visit Provider Nurse Practitioner Family | DX: R20.2 Paresthesia of skin; R53.1 Weakness; F17.210 Nicotine dependence, cigarettes, uncomplicated; Z98.890 Other specified postprocedural states; L02.511 Cutaneous abscess of right hand | CPT/HCPCS: 99213 ==

== ENCOUNTER → 2022-02-12 14:45 | Outpatient (BNVA) | payer MEDICAID, SELFPAY | PROVIDERS: Visit Provider Nurse Practitioner Family | DX: K21.9 Gastro-esophageal reflux disease without esophagitis (principal); M19.90 Unspecified osteoarthritis, unspecified site; I10 Essential (primary) hypertension; E11.42 Type 2 diabetes mellitus with diabetic polyneuropathy; H65.193 Other acute nonsuppurative otitis media, bilateral; E78.2 Mixed hyperlipidemia; J06.9 Acute upper respiratory infection, unspecified; E11.9 Type 2 diabetes mellitus without complications; W57.XXXA Bitten or stung by nonvenomous insect and other nonvenomous arthropods, initial encounter | CPT/HCPCS: 80053; 80061; 83036; 84443; 85025 ==

== ENCOUNTER → 2022-05-12 11:43 | Outpatient (BNVA) | payer MEDICAID, SELFPAY | PROVIDERS: Visit Provider Nurse Practitioner Family | DX: I10 Essential (primary) hypertension (principal); E11.65 Type 2 diabetes mellitus with hyperglycemia; K21.9 Gastro-esophageal reflux disease without esophagitis; M19.90 Unspecified osteoarthritis, unspecified site; E11.42 Type 2 diabetes mellitus with diabetic polyneuropathy; H65.193 Other acute nonsuppurative otitis media, bilateral; E78.2 Mixed hyperlipidemia; J06.9 Acute upper respiratory infection, unspecified | CPT/HCPCS: 80053; 80061; 83036; 84443; 85025 ==

== ENCOUNTER → 2022-06-25 09:40 | Outpatient (BNVA) | payer MEDICAID, SELFPAY | PROVIDERS: Visit Provider Obstetrics & Gynecology | DX: Z01.419 Encounter for gynecological examination (general) (routine) without abnormal findings (principal); Z12.39 Encounter for other screening for malignant neoplasm of breast; F32.9 Major depressive disorder, single episode, unspecified | CPT/HCPCS: 87624 ==

== ENCOUNTER 2022-07-22 14:17 | Outpatient (CLI) | payer MEDICAID, SELFPAY ==
--- NOTE | 2022-07-22 14:23 | MM_ITS ---
WS: [id number] BILATERAL 3D TOMOSYNTHESIS DIGITAL SCREENING MAMMOGRAPHY WITH CAD CLINICAL INFORMATION: Z12.39 - Encounter for other screening for malignant neop... HISTORY: Screening mammogram. No current complaints. COMPARISON: TECHNIQUE: Bilateral CC and MLO views. FINDINGS: Scattered fibroglandular densities bilaterally. No suspicious focal mass, asymmetry, calcifications, or architectural distortion. No evidence of malignancy. Punctate and lucent centered calcifications. MM/[place] [id number] IMPRESSION: BI-RADS: 2-Benign FOLLOW UP: 1 Year Follow-up Recommend return to annual screening mammography.
== END 2022-07-22 14:18 | disposition home or self-care (01) ==
LOC: RAD 14:19
PROVIDERS: PCP Nurse Practitioner Family; Visit Provider Obstetrics & Gynecology
DX: Z12.31 Encounter for screening mammogram for malignant neoplasm of breast (principal)
CPT/HCPCS: 77063; 77067

== ENCOUNTER 2022-09-23 11:32 | Outpatient (CLI) | payer MEDICAID, SELFPAY ==
--- NOTE | 2022-09-23 11:38 | US_ITS ---
WS: [id number] INDICATION: Palpable lump soft tissue RIGHT head TECHNIQUE: Ultrasound soft tissue area of concern. FINDINGS: Ultrasound soft tissue area of concern. Ultrasound posterior neck near the ear. No evidence of subcutaneous mass or lesion. No cystic or solid abnormalities in this area. No suspicious lesions . No lesions to target for biopsy. US/US soft tissue head neck [id number] IMPRESSION: No suspicious findings in the area of concern.
== END 2022-09-23 11:33 | disposition home or self-care (01) ==
LOC: RAD 11:34
PROVIDERS: PCP Nurse Practitioner Family; Visit Provider Nurse Practitioner Family
DX: M79.89 Other specified soft tissue disorders (principal)
CPT/HCPCS: 76536

== ENCOUNTER → 2022-11-04 13:51 | Outpatient (BNVA) | payer MEDICAID, SELFPAY | PROVIDERS: PCP Nurse Practitioner Family; Visit Provider Nurse Practitioner Family | DX: G89.29 Other chronic pain (principal); M53.82 Other specified dorsopathies, cervical region; M54.2 Cervicalgia | CPT/HCPCS: 72040 ==

== ENCOUNTER → 2022-11-24 15:44 | Outpatient (BNVA) | payer MEDICAID, SELFPAY | PROVIDERS: PCP Nurse Practitioner Family; Referring Provider Nurse Practitioner Family; Visit Provider Orthopaedic Surgery | DX: M47.12 Other spondylosis with myelopathy, cervical region (principal); M47.22 Other spondylosis with radiculopathy, cervical region | CPT/HCPCS: 72050; 99204 ==

== ENCOUNTER → 2022-11-27 11:07 | Outpatient (BNVA) | payer MEDICAID, SELFPAY | PROVIDERS: PCP Nurse Practitioner Family; Visit Provider Nurse Practitioner Family | DX: E11.9 Type 2 diabetes mellitus without complications (principal); Z79.899 Other long term (current) drug therapy | CPT/HCPCS: 80053; 80061; 83036; 84443; 85025 ==

== ENCOUNTER 2022-12-02 10:41 | Outpatient (CLI) | payer MEDICAID, SELFPAY ==
--- NOTE | 2022-12-02 11:00 | MR_ITS ---
WS: [id number] MRI CERVICAL SPINE NONCONTRAST HISTORY: cervical pain, numbness/tingling of RUE, headaches COMPARISON: None available. Technique: Multiplanar, multisequence noncontrast imaging of the cervical spine. Slight reversal of the normal cervical lordosis centered at C4. Disc spaces are desiccated and narrow ed. Osteophytic ridging around the vertebral bodies, most significant at C4-C6. No acute fracture. Th ere is a small amount of marrow edema in the facets of C3 and C4. Signal within the cervical cord is normal. Visualized posterior fossa is unremarkable. Craniocervical junction, C1 and C2 relationship, odontoid process and soft tissues are normal. C2-C3: Very small central disc protrusion. No stenosis. C3-C4: 2 mm anterolisthesis of C3 with annular disc bulging and mild facet arthritis. There is increa sed fluid surrounding the RIGHT facet with hypertrophic bone formation surrounding the RIGHT facet floridalma int and a small amount of edema. Mild foraminal stenosis. C4-C5: Diffuse annular disc bulging and osteophytic ridging. Small central disc protrusion moderate d isc osteophyte RIGHT foramen and smaller within the LEFT foramen. Moderate RIGHT foraminal stenosis. C5-C6: Diffuse annular disc bulging and osteophytic ridging. Very mild central stenosis. Moderate to severe bilateral foraminal stenosis, LEFT greater than RIGHT. C6-C7: Diffuse annular disc bulging with a central protrusion. Marked osteophytic ridging and facet j oint arthritis. Moderate central with moderate to severe foraminal stenosis. C7-T1: Mild osteophytic ridging. Only mild foraminal stenosis. Paraspinal soft tissue are normal. MR/MR cervical spin wo con* [id number] IMPRESSION: 1. Advanced facet joint arthritis and osteophytosis throughout the cervical sp ine. 2. Marked synovitis involving the RIGHT C3-4 facet joint. 3. Mild bilateral foraminal stenosis at C3-4. 4. Moderate RIGHT foraminal stenosis at C4-5 due to disc osteophyte. 5. Mild central with moderate to severe foraminal stenosis, LEFT greater than RIGHT at C5-6. 6. Moderate central with moderate to severe foraminal stenosis at C6-7.
== END 2022-12-02 10:42 | disposition home or self-care (01) ==
PROVIDERS: PCP Nurse Practitioner Family; Visit Provider Orthopaedic Surgery
DX: R20.0 Anesthesia of skin; R20.2 Paresthesia of skin; R51.9 Headache, unspecified; M48.02 Spinal stenosis, cervical region; M47.892 Other spondylosis, cervical region; M65.88 Other synovitis and tenosynovitis, other site; M25.78 Osteophyte, vertebrae; M50.21 Other cervical disc displacement, high cervical region
CPT/HCPCS: 72141

== ENCOUNTER → 2022-12-03 15:30 | Outpatient (BNVA) | payer MEDICAID, SELFPAY | PROVIDERS: PCP Nurse Practitioner Family; Visit Provider Physician Assistant | DX: M47.812 Spondylosis without myelopathy or radiculopathy, cervical region (principal); M50.30 Other cervical disc degeneration, unspecified cervical region; R20.2 Paresthesia of skin | CPT/HCPCS: 99213 ==

== ENCOUNTER 2023-01-26 13:34 | Outpatient (CLI) | payer MEDICAID, SELFPAY ==
--- NOTE | 2023-01-26 10:30 | CT_ITS ---
WS: [id number] LDCT LUNG CANCER SCREENING HISTORY: Z12.2 - Encounter for screening for malignant neoplasm TECHNIQUE: Axial imaging performed from the apices to 1 cm below the costophrenic angles. Coronal and sagittal reformats are submitted with axial MIP series. All CT scans at [facility] use at least one of these dose optimization techniques: automated exposure control; mA and/or kV adjustment per patient size (includes targeted exams where dose is matched to clinical indication); or iterativ e reconstruction. DLP: 62.80 mGy.cm DIvol: Mean CTDIvol: 1.40 (mGy) COMPARISON: None available. Diagnostic quality: Satisfactory Lungs: Lungs are clear and well aerated. No pulmonary nodule, mass or pneumonia. No endobronchial les ions. Heart: Normal size heart with no pericardial effusion.. Other findings: Very minimal atherosclerosis aorta. Normal size pulmonary artery. No adenopathy. Smal l hiatal hernia. Mild thickening of the LEFT adrenal gland similar to 12/07/2020. CT/CT lung screening [id number] IMPRESSION: LUNG-RADS: 1-Negative FOLLOW UP: 12 Month: Continue annual screening with LDCT OTHER FINDINGS (S MODIFIER): None.
== END 2023-01-26 13:35 | disposition home or self-care (01) ==
LOC: RAD 13:39
PROVIDERS: PCP Nurse Practitioner Family; Visit Provider Nurse Practitioner Family
DX: Z12.2 Encounter for screening for malignant neoplasm of respiratory organs (principal); Z72.0 Tobacco use
CPT/HCPCS: 71271

== ENCOUNTER → 2023-03-26 08:49 | Outpatient (BNVA) | payer MEDICAID, SELFPAY | PROVIDERS: PCP Nurse Practitioner Family; Visit Provider Specialist | DX: G56.03 Carpal tunnel syndrome, bilateral upper limbs (principal); M50.30 Other cervical disc degeneration, unspecified cervical region | CPT/HCPCS: 95885; 95909; 95910; 99202 ==

== ENCOUNTER → 2023-04-09 10:29 | Outpatient (BNVA) | payer MEDICAID, SELFPAY | PROVIDERS: PCP Nurse Practitioner Family; Visit Provider Nurse Practitioner Family | DX: K21.9 Gastro-esophageal reflux disease without esophagitis (principal); M19.90 Unspecified osteoarthritis, unspecified site; I10 Essential (primary) hypertension; E11.42 Type 2 diabetes mellitus with diabetic polyneuropathy; H65.193 Other acute nonsuppurative otitis media, bilateral; E78.2 Mixed hyperlipidemia; J06.9 Acute upper respiratory infection, unspecified; M54.2 Cervicalgia; G89.29 Other chronic pain | CPT/HCPCS: 80053; 80061; 83036; 84443; 85025 ==

== ENCOUNTER → 2023-07-22 10:58 | Outpatient (BNVA) | payer MEDICAID, SELFPAY | PROVIDERS: PCP Nurse Practitioner Family; Visit Provider Obstetrics & Gynecology | DX: N95.1 Menopausal and female climacteric states (principal) | CPT/HCPCS: 76830 ==

== ENCOUNTER → 2023-07-23 09:34 | Outpatient (BNVA) | payer MEDICAID, SELFPAY | PROVIDERS: PCP Nurse Practitioner Family; Visit Provider Nurse Practitioner Family | DX: E11.9 Type 2 diabetes mellitus without complications (principal); I10 Essential (primary) hypertension | CPT/HCPCS: 80053; 80061; 83036; 84443; 85025 ==

== ENCOUNTER → 2023-08-24 10:31 | Outpatient (BNVA) | payer MEDICAID, SELFPAY | PROVIDERS: PCP Nurse Practitioner Family; Visit Provider Physician Assistant | DX: G56.03 Carpal tunnel syndrome, bilateral upper limbs (principal); M47.812 Spondylosis without myelopathy or radiculopathy, cervical region; M50.30 Other cervical disc degeneration, unspecified cervical region | CPT/HCPCS: 99214 ==

== ENCOUNTER → 2023-09-02 09:47 | Outpatient (BNVA) | payer MEDICAID, SELFPAY | PROVIDERS: PCP Nurse Practitioner Family; Visit Provider Nurse Practitioner | DX: Z01.818 Encounter for other preprocedural examination (principal); G56.03 Carpal tunnel syndrome, bilateral upper limbs | CPT/HCPCS: 36415; 80053; 85025; 99214 ==

== ENCOUNTER 2023-09-10 08:49 | Day surgery (SDC) | payer MEDICAID, SELFPAY ==
[2023-09-10] VITALS (9 sets, daily range): BP systolic 90–146; BP diastolic 43–85; PULSE 62–80; RESP 9–30; TEMP 36.4–36.7; O2SAT 93–100; BMI 26.6
[2023-09-10 09:27] LABS: Glucose Point of Care 187 mg/dL (70-110)
[2023-09-10] MEDS: acetaminophen 1,000 MG/100 ML PIGGYBACK 400 MG IV (09:36)
[2023-09-10] MEDS: CELEcoxib 200 mg Capsule 400 MG PO (09:42)
[2023-09-10] MEDS: gabapentin 300 mg Capsule PO (09:43)
[2023-09-10] MEDS: sodium chloride 0.9% 1,000 ML 30 ML IV (09:44)
--- NOTE | 2023-09-10 10:08 | P.ANESASSM_ITS ---
Pre-Anesthetic Assessment Height/Weight: Height 1.65 m Weight 72.575 kg Temp Pulse Resp BP Pulse Ox O2 Del Method 97.6 F 80 16 128/85 97 Room Air 09/10/23 09:16 09/10/23 09:16 09/10/23 09:16 09/10/23 09:16 09/10/23 09:16 09/10/23 09:16 Operation Date: 09/10/23 12:30 Proposed Procedures p [id number] left wrist carpal tunnel release G56.03(Left) - Dot Gilman MD Familial anesthetic complications: None Was Beta Pelon taken within 24 hours: N/A Was Clonidine taken within 24 hours: N/A Last intake: Intake Last Liquid Date 09/10/23 Last Liquid Time 07:30 Last Solid Date 09/09/23 Last Solid Time 22:50 Social Tobacco and No alcohol Exam alert, oriented x 3, clear to auscultation bilaterally and regular rate & rhythm Airway Mallampati: Class III Dentition: false Pulmonary hx aspiration upper airway secretions CV/HEM Hypertension Hepatic Hepatitis (C) GI Gastroesophageal Reflux Disease Metabolic Diabetes Mellitus and Hyperlipidemia Anesthetic Plan ASA status: 3 Anesthesia: General Risk of > 500 ml blood loss (7ml/kg in children): No Medications/Allergies Home Medications Medication Instructions Recorded Confirmed Last Taken Type alpha lipoic acid 600 mg tablet 600 mg PO DAILY 01/21/22 09/10/23 09/09/23 History lactobacillus combination no.4 3 1 cell PO DAILY 01/21/22 09/10/23 09/09/23 History billion cell capsule (Probiotic) naloxone 4 mg/actuation nasal 1 spray intranasal Q2M #2 ea 01/23/22 09/09/23 Unknown Rx spray (Narcan) mupirocin 2 % topical ointment 1 applic topical BID #15 grams 04/09/23 09/09/23 Unknown Rx triamcinolone acetonide 0.1 % 1 applic topical TID #15 grams 04/09/23 09/09/23 Unknown Rx topical ointment cholecalciferol (vitamin D3) 50 50 mcg PO DAILY 06/30/23 09/10/23 09/09/23 History mcg (2,000 unit) capsule estradiol 1 mg tablet (Estrace) 1 mg PO DAILY #30 tabs 06/30/23 09/09/23 09/09/23 Rx medroxyprogesterone 2.5 mg tablet 2.5 mg PO DAILY #30 tabs 06/30/23 09/09/23 Unknown Rx (Provera) vdqtrjzk-uavhoxux-tzqfl acid 120 1 tab PO DAILY 06/30/23 09/10/23 09/09/23 History mcg-lutein 100 mcg-herb no.329 tablet (Alive Diabetic Multivitamin) omega-3 fatty acids 500 mg capsule 500 mg PO DAILY 06/30/23 09/10/23 09/09/23 History albuterol sulfate 90 mcg/actuation 1 puff inhalation QID PRN 07/26/23 09/09/23 09/02/23 Rx aerosol inhaler (ProAir HFA) shortness of breath or wheezing 30 days #6.7 grams atorvastatin 20 mg tablet 20 mg PO DAILY 30 days #30 tabs 07/26/23 09/10/23 09/09/23 Rx empagliflozin 25 mg tablet 25 mg PO DAILY #30 tabs 07/26/23 09/10/23 09/09/23 Rx fluticasone propionate 50 2 spray intranasal DAILY 30 days 07/26/23 09/09/23 09/07/23 Rx mcg/actuation nasal #9.9 mL spray,suspension (Flonase Allergy Relief) gabapentin 400 mg capsule 400 mg PO BID 30 days #60 caps 07/26/23 09/10/23 09/09/23 Rx glipizide 5 mg tablet 5 mg PO BID 30 days #60 tabs 07/26/23 09/10/23 09/09/23 Rx losartan 50 mg tablet 50 mg PO DAILY #30 tabs 07/26/23 09/10/23 09/09/23 Rx meloxicam 7.5 mg tablet 7.5 mg PO BID 30 days #60 tabs 07/26/23 09/10/23 09/09/23 Rx metformin 1,000 mg tablet 1,000 mg PO BID 30 days #60 tabs 07/26/23 09/10/23 09/09/23 Rx cock-up wrist brace #1 ea 09/02/23 09/02/23 Unknown Rx left cock up wrist brace #1 ea 09/02/23 09/02/23 Unknown Rx right cock up wrist brace #1 ea 09/02/23 09/02/23 Unknown Rx pantoprazole 40 mg tablet,delayed 40 mg PO DAILY 09/09/23 09/10/23 09/08/23 History release t-1 Allergies Allergy/AdvReac Type Severity Reaction Status Date / Time tramadol [From [facility]] Allergy Mild itching Verified 09/02/23 08:25 Current Medications Generic Name Dose Route Start Last Admin Trade Name Lebron PRN Reason Stop Dose Admin Sodium Chloride 1,000 mls @ 30 mls/hr 09/10/23 09:00 09/10/23 09:44 Sodium Chloride 0.9% IV 09/11/23 08:59 30 mls/hr .Q24H RICCO Administration PFSH Anesthesia Medical History (Updated 09/06/23 @ 21:30 by SHABANA Alfredo-MARTÍN) Carpal tunnel syndrome of right wrist Carpal tunnel syndrome of left wrist Degenerative disc disease, cervical Diabetic peripheral neuropathy Chronic osteoarthritis History of hepatitis C Diabetes mellitus Hypertension Hyperlipidemia Depression Surgical History 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
--- NOTE | 2023-09-10 10:17 | W.PM.OPSUD ---
Surgery/Procedure H&P Update DATE OF PROCEDURE: September 10, 2023 DATE H&P PERFORMED: 09/02/23 H&P UPDATE INFORMATION: I have reviewed H&P completed within last 30 days, I have examined patient prior to procedure, No changes to prior documentation and [place] [facility] [place] indicated PLANNED PROCEDURE: Operation Date: 09/10/23 12:30 Proposed Procedures p [id number] left wrist carpal tunnel release G56.03(Left) - Dot Gilman MD Related Problem List Diagnoses (1) Carpal tunnel syndrome of left wrist:
[2023-09-10] MEDS: ceFAZolin 2,000 MG in sodium chloride 0.9% (plus) 50 ML 100 MG IV (11:23)
[2023-09-10] MEDS: BUPivacaine 0.5% INJ 30 mL INJECTION (12:06)
--- NOTE | 2023-09-10 12:16 | PM.OP ---
Operative Report Date of procedure: September 10, 2023 Pre-op diagnosis: Left Carpal Tunnel Syndrome Post-op diagnosis: Left Carpal Tunnel Syndrome Post-op findings: Severe compression across the carpal canal Procedure done: Left carpal tunnel release Specimens removed/disposition: None Surgeon: Dot Gilman MD Pump Machine Operator: None Anesthesia: General (Per LMA, ASA 3) Estimated blood loss (mL): 2 Tourniquet time (min): 13 (At 250 mmHg) IV fluids (mL): 1,000 Urine output (mL): 0 (No Wild) Complications: None Disposition: same day Brief History: This 62-year-old woman presented to the clinic for evaluation of bilateral upper extremity pain. The patient had EMG findings consistent with carpal tunnel syndrome. There was no evidence of radiculopathy, and the median nerve compression was moderately severe bilaterally. She has significant arm pain in her hands would wake her up at night. She was unable to use her hands without dropping things. After discussion of nonoperative and operative treatment, the patient wished to proceed with operative carpal tunnel release. She elected to have the left carpal tunnel release first with plans for right carpal tunnel to follow. Risks and complications were discussed with the patient. Consents were signed and questions were answered. Procedure: The patient was brought to the operating theater. General anesthesia per LMA, ASA 3. The tourniquet was elevated to 250 mmHg for a total tourniquet time of 13 minutes. The patient was also given Ancef 2 g preoperatively. The arm was then prepped and draped with DuraPrep in usual fashion with the arm draped free. A surgical pause was performed. At the time, the surgical pause, we confirmed the site and side of surgery. We also confirmed the patient's identity, appropriate and timely administration of preoperative antibiotics and preoperative surgical markings. An incision was then made along the thenar crease. The incision crossed the wrist joint in a curvilinear fashion. Dissection continued through skin and soft tissues using a scalpel. The palmaris longus was identified along with the transverse carpal ligament. Each of these was released carefully to avoid injury to the median nerve. We were able to dissect gently into the carpal canal which was noted to be quite tight with significant compression across the median nerve. The nerve was visualized and was an hourglass shape. After release, the canal was subsequently palpated to assure there was no bony encroachment upon the canal. There was a quite thickened fibrous tissue within the canal, and this was opened longitudinally as well. The canal was then palpated distally and proximally to assure that my small finger was passed easily without impingement. Finding this to be so, attention was directed to closure. The wound was irrigated with ropivacaine plain. It was then closed with 3-0 nylon in an interrupted mattress fashion. Sterile dressing was then placed consisting of Dermabond, OpSite, fluffed fluffs, sterile soft roll, and an Paul wrap. The tourniquet was released after 21 minutes. There were no complications. There were no specimens. The procedure was well tolerated. Plan is the patient will be discharged home. Related Problem List Diagnoses (1) Carpal tunnel syndrome of left wrist:
--- NOTE | 2023-09-10 12:37 | PC.NURSE ---
1237- oral airway out per pt - simple mask at [address]
--- NOTE | 2023-09-10 14:53 | ANE.PACU2 ---
Inpatient post-anesthesia follow up: Airway intact: Yes Vital signs: Temperature 98 F Pulse Rate 71 Respiratory Rate 16 Blood Pressure 146/79 Pulse Oximetry 99 Oxygen Delivery Me thod Room Air Oxygen Flow Rate 6 Fraction of Inspir ed Oxygen Hydration adequate: Yes Nausea and vomiting: No Pain level: 1 Mental status: Baseline
== END 2023-09-10 13:30 | disposition home or self-care (01) ==
PROVIDERS: PCP Nurse Practitioner Family; Visit Provider Specialist
PROC: (CPT 64721; principal; 2023-09-10 12:20)
DX: G56.02 Carpal tunnel syndrome, left upper limb (principal); I10 Essential (primary) hypertension; Z86.19 Personal history of other infectious and parasitic diseases; K21.9 Gastro-esophageal reflux disease without esophagitis; E78.5 Hyperlipidemia, unspecified; E11.42 Type 2 diabetes mellitus with diabetic polyneuropathy
CPT/HCPCS: 64721; 36416; 82962; J0131; J0690; J1100; J2371; J2405; J2704; J3010; J3490; J7030

== ENCOUNTER → 2023-09-23 10:28 | Outpatient (BNVA) | payer MEDICAID, SELFPAY | PROVIDERS: PCP Nurse Practitioner Family; Visit Provider Specialist | DX: G56.03 Carpal tunnel syndrome, bilateral upper limbs | CPT/HCPCS: 99024 ==

== ENCOUNTER → 2023-11-02 10:34 | Outpatient (BNVA) | payer MEDICAID, SELFPAY | PROVIDERS: PCP Nurse Practitioner Family; Visit Provider Orthopaedic Surgery | DX: M50.023 Cervical disc disorder at C6-C7 level with myelopathy (principal); M43.12 Spondylolisthesis, cervical region | CPT/HCPCS: 72050; 99214 ==

== ENCOUNTER 2023-11-09 06:48 | Day surgery (SDC) | payer MEDICAID, SELFPAY ==
[2023-11-09] VITALS (9 sets, daily range): BP systolic 93–158; BP diastolic 46–78; PULSE 59–76; RESP 16–18; TEMP 36.1–36.3; O2SAT 95–98
--- NOTE | 2023-11-09 06:52 | W.PM.OPSFHP ---
Same Day Surgery H&P Indication for Procedure/HPI DATE OF PROCEDURE: November 09, 2023 CHIEF COMPLAINT/INDICATIONFOR SURGICAL PROCEDURE: Right carpal tunnel syndrome PREOP DIAGNOSIS: Right carpal tunnel syndrome PLANNED PROCEDURE: Operation Date: 11/09/23 08:20 Proposed Procedures p right wrist carpal tunnel release 06274,G56.01(Right) - Dot Gilman MD Medications/Allergies* Home Medications Medication Instructions Recorded Confirmed Type alpha lipoic acid 600 mg tablet 600 mg PO DAILY 01/21/22 11/08/23 History lactobacillus combination no.4 3 1 cell PO DAILY 01/21/22 11/08/23 History billion cell capsule (Probiotic) cholecalciferol (vitamin D3) 50 50 mcg PO DAILY 06/30/23 11/08/23 History mcg (2,000 unit) capsule ulefcoag-bsixdylq-zxpop acid 120 1 tab PO DAILY 06/30/23 11/08/23 History mcg-lutein 100 mcg-herb no.329 tablet (Alive Diabetic Multivitamin) omega-3 fatty acids 500 mg capsule 500 mg PO DAILY 06/30/23 11/08/23 History pantoprazole 40 mg tablet,delayed 40 mg PO DAILY 09/09/23 11/08/23 History release gabapentin 400 mg capsule 400 mg PO DAILY 11/08/23 11/08/23 History glipizide 5 mg tablet 5 mg PO DAILY 11/08/23 11/08/23 History metformin 1,000 mg tablet 1,000 mg PO DAILY 11/08/23 11/08/23 History Allergies/Adverse Reactions Allergy/AdvReac Type Severity Reaction Status Date / Time tramadol [From [facility]] Allergy Mild itching Verified 11/08/23 12:05 Pertinent History/Comorbid Conditions* Medical History (Updated 09/11/23 @ 00:00 by SEVEN Ware) Carpal tunnel syndrome of right wrist Carpal tunnel syndrome of left wrist Degenerative disc disease, cervical Diabetic peripheral neuropathy Chronic osteoarthritis History of hepatitis C Diabetes mellitus Hypertension Hyperlipidemia Depression Surgical History (Updated 04/26/20 @ 09:53 by OMAR Yarbrough) 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 There was evidence of moderately severe entrapment of the right median nerve at the wrist. 2. There was evidence of moderately severe entrapment of the left median nerve at the wrist. 3. Normal ulnar nerves. 4. No specific evidence of radiculopathy by EMG or nerve conduction studies. Pertinent Exam Findings alert, oriented x 3, clear to auscultation bilaterally, regular rate & rhythm and operative site marked Recommendations Surgery/Procedure today Coding Level of Care Code Acute Code for Chg Fwd
[2023-11-09] MEDS: sodium chloride 0.9% 1,000 ML 30 ML IV (07:12)
[2023-11-09] MEDS: acetaminophen 1,000 MG/100 ML PIGGYBACK 400 MG IV (07:13)
[2023-11-09] MEDS: CELEcoxib 200 mg Capsule 400 MG PO (07:15)
[2023-11-09] MEDS: gabapentin 300 mg Capsule PO (07:15)
[2023-11-09 07:26] LABS: Glucose Point of Care 164 mg/dL (70-110)
--- NOTE | 2023-11-09 07:47 | ANES.PREANE2 ---
Pre-Anesthetic Assessment Height/Weight: Height 1.65 m Weight 72.575 kg Temp Pulse Resp BP Pulse Ox O2 Del Method 97 F L 76 16 158/73 95 Room Air 11/09/23 07:05 11/09/23 07:05 11/09/23 07:05 11/09/23 07:05 11/09/23 07:05 11/09/23 07:05 Preop Diagnosis: Right carpal tunnel syndrome Operation Date: 11/09/23 08:20 Proposed Procedures p right wrist carpal tunnel release [id number],G56.01(Right) - Dot Gilman MD Familial anesthetic complications: none Was Beta Pelon taken within 24 hours: N/A Was Clonidine taken within 24 hours: N/A Last intake: Intake Last Liquid Date 11/08/23 Last Liquid Time 23:30 Last Solid Date 11/08/23 Last Solid Time 23:30 Social Tobacco and No alcohol Exam alert, oriented x 3 and regular rate & rhythm Airway Submandibular: within normal limits Cervical ROM: within normal limits Mallampati: Class II Dentition: false Pulmonary Chronic Obstructive Pulmonary Disease CV/HEM Hypertension Hepatic Hepatitis (C) GI Gastroesophageal Reflux Disease Metabolic Diabetes Mellitus and Hyperlipidemia [facility] [place] Osteoarthritis/DJD Neuropsych Neuropathy Anesthetic Plan ASA status: 3 Anesthesia: General Medications/Allergies Home Medications Medication Instructions Recorded Confirmed Last Taken Type alpha lipoic acid 600 mg tablet 600 mg PO DAILY 01/21/22 11/09/23 11/08/23 History lactobacillus combination no.4 3 1 cell PO DAILY 01/21/22 11/09/23 11/08/23 History billion cell capsule (Probiotic) naloxone 4 mg/actuation nasal 1 spray intranasal Q2M #2 ea 01/23/22 11/08/23 Unknown Rx spray (Narcan) mupirocin 2 % topical ointment 1 applic topical BID #15 grams 04/09/23 11/09/23 Unknown Rx triamcinolone acetonide 0.1 % 1 applic topical TID #15 grams 04/09/23 11/08/23 Unknown Rx topical ointment cholecalciferol (vitamin D3) 50 50 mcg PO DAILY 06/30/23 11/09/23 11/08/23 History mcg (2,000 unit) capsule estradiol 1 mg tablet (Estrace) 1 mg PO DAILY #30 tabs 06/30/23 11/09/23 11/08/23 Rx medroxyprogesterone 2.5 mg tablet 2.5 mg PO DAILY #30 tabs 06/30/23 11/09/23 11/08/23 Rx (Provera) zimtaslh-yixgjvwl-qdekc acid 120 1 tab PO DAILY 06/30/23 11/09/23 11/08/23 History mcg-lutein 100 mcg-herb no.329 tablet (Alive Diabetic Multivitamin) omega-3 fatty acids 500 mg capsule 500 mg PO DAILY 06/30/23 11/09/23 11/08/23 History albuterol sulfate 90 mcg/actuation 1 puff inhalation QID PRN 07/26/23 11/09/23 11/07/23 Rx aerosol inhaler (ProAir HFA) shortness of breath or wheezing 30 days #6.7 grams atorvastatin 20 mg tablet 20 mg PO DAILY 30 days #30 tabs 07/26/23 11/09/23 11/08/23 Rx empagliflozin 25 mg tablet 25 mg PO DAILY #30 tabs 07/26/23 11/09/23 11/07/23 Rx fluticasone propionate 50 2 spray intranasal DAILY 30 days 07/26/23 11/09/23 11/08/23 Rx mcg/actuation nasal #9.9 mL spray,suspension (Flonase Allergy Relief) losartan 50 mg tablet 50 mg PO DAILY #30 tabs 07/26/23 11/09/23 11/08/23 Rx meloxicam 7.5 mg tablet 7.5 mg PO BID 30 days #60 tabs 07/26/23 11/09/23 11/08/23 Rx cock-up wrist brace #1 ea 09/02/23 11/02/23 Unknown Rx left cock up wrist brace #1 ea 09/02/23 11/02/23 Unknown Rx right cock up wrist brace #1 ea 09/02/23 11/02/23 Unknown Rx pantoprazole 40 mg tablet,delayed 40 mg PO DAILY 09/09/23 11/09/23 11/08/23 History release gabapentin 400 mg capsule 400 mg PO DAILY 11/08/23 11/09/23 11/08/23 History glipizide 5 mg tablet 5 mg PO DAILY 11/08/23 11/09/23 11/07/23 History metformin 1,000 mg tablet 1,000 mg PO DAILY 11/08/23 11/09/23 11/07/23 History Allergies Allergy/AdvReac Type Severity Reaction Status Date / Time tramadol [From [facility]] Allergy Mild itching Verified 11/08/23 12:05 Current Medications Generic Name Dose Route Start Last Admin Trade Name Lebron PRN Reason Stop Dose Admin Sodium Chloride 1,000 mls @ 30 mls/hr 11/09/23 07:00 11/09/23 07:12 Sodium Chloride 0.9% IV 11/10/23 06:59 30 mls/hr .Q24H RICCO Administration PFSH Anesthesia Medical History Carpal tunnel syndrome of right wrist Carpal tunnel syndrome of left wrist Degenerative disc disease, cervical Diabetic peripheral neuropathy Chronic osteoarthritis History of hepatitis C Diabetes mellitus Hypertension Hyperlipidemia Depression Surgical History 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
[2023-11-09] MEDS: ceFAZolin 2,000 MG in sodium chloride 0.9% (plus) 50 ML 100 MG IV (08:16)
[2023-11-09] MEDS: BUPivacaine 0.5% INJ 30 mL XX (08:35)
--- NOTE | 2023-11-09 09:35 | PM.OP ---
Operative Report Date of procedure: November 09, 2023 Pre-op diagnosis: Right carpal tunnel syndrome Post-op diagnosis: Right carpal tunnel syndrome Post-op findings: Severe compression across the carpal canal with purplish discoloration of the median nerve Procedure done: Right carpal tunnel release Specimens removed/disposition: None Pathology: None Surgeon: Dot Gilman MD Database Security Administrator: None Anesthesia: General (Per LMA, ASA 3) Estimated blood loss (mL): 2 Tourniquet time (min): 15 (At 250 mmHg) IV fluids (mL): 500 Urine output (mL): 0 (No Wild) Complications: None Findings: Severe compression across carpal canal with hourglass deformity to the median nerve Brief History: This 62-year-old woman presented to the clinic for evaluation of bilateral upper extremity pain. The patient had EMG findings consistent with carpal tunnel syndrome. There was no evidence of radiculopathy, and the median nerve compression was moderately severe bilaterally. She has significant arm pain in her hands would wake her up at night. She was unable to use her hands without dropping things. After discussion of nonoperative and operative treatment, the patient wished to proceed with operative carpal tunnel release. She elected to have the left carpal tunnel release first which she has nicely recovered from. Today, she presents for right carpal tunnel. Risks and complications were discussed with the patient. Consents were signed and questions were answered. Procedure: The patient was brought to the operating theater. General anesthesia per LMA, ASA 3. The tourniquet was elevated to 250 mmHg for a total tourniquet time of 15 minutes. The patient was also given Ancef 2 g preoperatively. The arm was then prepped and draped with DuraPrep in usual fashion with the arm draped free. A surgical pause was performed. At the time, the surgical pause, we confirmed the site and side of surgery. We also confirmed the patient's identity, appropriate and timely administration of preoperative antibiotics and preoperative surgical markings. An incision was then made along the thenar crease. The incision crossed the wrist joint in a curvilinear fashion. Dissection continued through skin and soft tissues using a scalpel. The palmaris longus was identified along with the transverse carpal ligament. Each of these was released carefully to avoid injury to the median nerve. We were able to dissect gently into the carpal canal which was noted to be quite tight with significant compression across the median nerve. The nerve was visualized and was an hourglass shape. After release, the canal was subsequently palpated to assure there was no bony encroachment upon the canal. There was a quite thickened fibrous tissue within the canal, and this was opened longitudinally as well. The canal was then palpated distally and proximally to assure that my small finger was passed easily without impingement. Finding this to be so, attention was directed to closure. The wound was irrigated with ropivacaine plain. It was then closed with 3-0 nylon in an interrupted mattress fashion. Sterile dressing was then placed consisting of Dermabond, OpSite, fluffed fluffs, sterile soft roll, and an Paul wrap. The tourniquet was released after 15 minutes. There were no complications. There were no specimens. The procedure was well tolerated. Plan is the patient will be discharged home. Related Problem List Diagnoses (1) Carpal tunnel syndrome of right wrist:
--- NOTE | 2023-11-09 15:46 | ANE.PACU2 ---
Inpatient post-anesthesia follow up: Airway intact: Yes Vital signs: Temperature 97.2 F Pulse Rate 62 Respiratory Rate 18 Blood Pressure 142/78 Pulse Oximetry 96 Oxygen Delivery Me thod Room Air Oxygen Flow Rate 6 Fraction of Inspir ed Oxygen Hydration adequate: Yes Nausea and vomiting: No Pain level: 2 Mental status: Baseline
== END 2023-11-09 10:15 | disposition home or self-care (01) ==
PROVIDERS: PCP Nurse Practitioner Family; Visit Provider Specialist
PROC: (CPT 64721; principal; 2023-11-09 08:20)
DX: G56.01 Carpal tunnel syndrome, right upper limb (principal); J44.9 Chronic obstructive pulmonary disease, unspecified; I10 Essential (primary) hypertension; Z86.19 Personal history of other infectious and parasitic diseases; K21.9 Gastro-esophageal reflux disease without esophagitis; E78.5 Hyperlipidemia, unspecified; E11.40 Type 2 diabetes mellitus with diabetic neuropathy, unspecified
CPT/HCPCS: 64721; 36416; 82962; J0131; J0690; J1100; J2371; J2405; J2704; J3010; J3490; J7030

== ENCOUNTER → 2023-11-25 09:55 | Outpatient (BNVA) | payer MEDICAID, SELFPAY | PROVIDERS: PCP Nurse Practitioner Family; Visit Provider Anesthesiology Pain Medicine | DX: M47.812 Spondylosis without myelopathy or radiculopathy, cervical region; E11.42 Type 2 diabetes mellitus with diabetic polyneuropathy; M50.30 Other cervical disc degeneration, unspecified cervical region; G56.02 Carpal tunnel syndrome, left upper limb; G56.01 Carpal tunnel syndrome, right upper limb | CPT/HCPCS: 99204 ==

== ENCOUNTER → 2023-11-26 08:19 | Outpatient (BNVA) | payer MEDICAID, SELFPAY | PROVIDERS: PCP Nurse Practitioner Family; Visit Provider Nurse Practitioner | DX: Z98.890 Other specified postprocedural states (principal); G56.01 Carpal tunnel syndrome, right upper limb | CPT/HCPCS: 99024 ==

== ENCOUNTER → 2023-11-29 10:12 | Outpatient (BNVA) | payer MEDICAID, SELFPAY | PROVIDERS: PCP Nurse Practitioner Family; Visit Provider Nurse Practitioner Family | DX: E11.9 Type 2 diabetes mellitus without complications (principal); I10 Essential (primary) hypertension; E78.2 Mixed hyperlipidemia | CPT/HCPCS: 80053; 80061; 83036; 84443; 85025 ==

== ENCOUNTER → 2024-01-20 11:22 | Outpatient (BNVA) | payer MEDICAID, SELFPAY | PROVIDERS: PCP Nurse Practitioner Family; Visit Provider Nurse Practitioner Family | DX: S69.91XA Unspecified injury of right wrist, hand and finger(s), initial encounter (principal); Z98.890 Other specified postprocedural states; M25.531 Pain in right wrist; W19.XXXA Unspecified fall, initial encounter | CPT/HCPCS: 73110 ==

== ENCOUNTER → 2024-06-08 10:52 | Outpatient (BNVA) | payer MEDICAID, SELFPAY | PROVIDERS: PCP Nurse Practitioner Family; Visit Provider Nurse Practitioner Family | DX: J44.1 Chronic obstructive pulmonary disease with (acute) exacerbation (principal); R07.81 Pleurodynia; R91.8 Other nonspecific abnormal finding of lung field; R05.9 Cough, unspecified | CPT/HCPCS: 71046 ==

== ENCOUNTER 2024-10-11 10:43 | Outpatient (CLI) | payer MEDICAID, SELFPAY ==
--- NOTE | 2024-10-11 10:46 | XR_ITS ---
WS: [id number] XR chest 2V* [id number] REASON FOR EXAM: R07.81 - Pleurodynia FINDINGS: The heart and mediastinum are within normal limits. Calcified granulomatous disease in both hemithoraces. No acute pulmonary parenchymal or pleural abnormality. Moderately severe degenerative spondylosis in the thoracic spine. XR/XR chest 2V* [id number] IMPRESSION: No acute chest abnormality.
--- NOTE | 2024-10-11 10:46 | XR_ITS ---
WS: [id number] XR ribs RT 2V* [id number] REASON FOR EXAM: R07.81 - Pleurodynia FINDINGS: No rib fracture or focal rib lesion. Underlying lung and pleura are unremarkable. No chest wall abnormality. XR/XR ribs RT 2V* [id number] IMPRESSION: No significant abnormality.
== END 2024-10-11 10:44 | disposition home or self-care (01) ==
LOC: RAD 10:44
PROVIDERS: PCP Nurse Practitioner Family; Visit Provider Nurse Practitioner Family
DX: R07.81 Pleurodynia (principal); D71 Functional disorders of polymorphonuclear neutrophils; M47.894 Other spondylosis, thoracic region
CPT/HCPCS: 71046; 71100

== ENCOUNTER → 2024-10-18 10:57 | Outpatient (BNVA) | payer MEDICAID, SELFPAY | PROVIDERS: PCP Nurse Practitioner Family; Visit Provider Nurse Practitioner Family | DX: R39.9 Unspecified symptoms and signs involving the genitourinary system (principal) | CPT/HCPCS: 81000 ==

== ENCOUNTER → 2024-10-24 08:52 | Outpatient (BNVA) | payer SELFPAY | PROVIDERS: PCP Nurse Practitioner Family; Visit Provider Nurse Practitioner Family | DX: E11.9 Type 2 diabetes mellitus without complications (principal); I10 Essential (primary) hypertension | CPT/HCPCS: 80053; 80061; 83036; 84443; 85025 ==

== ENCOUNTER 2024-11-07 11:22 | Outpatient (CLI) | payer MEDICAID, SELFPAY ==
--- NOTE | 2024-11-07 11:20 | MM_ITS ---
WS: [id number] BILATERAL 3D TOMOSYNTHESIS DIGITAL SCREENING MAMMOGRAPHY WITH CAD CLINICAL INFORMATION: Z12.39 - Encounter for other screening for malignant neop... HISTORY: Screening mammogram. No current complaints. COMPARISON: 2021 TECHNIQUE: Bilateral CC and MLO views. FINDINGS: Scattered fibroglandular densities bilaterally. No suspicious focal mass, asymmetry, calcifications, or architectural distortion. No evidence of malignancy. Incidental punctate and lucent centered calcifications. MM/MM [facility] tomosynthesis [id number] IMPRESSION: DENSITY: There are scattered areas of fibroglandular density. BI-RADS: 2 - Benign. FOLLOW UP: 1 Year Follow-up Recommend return to annual screening mammography.
== END 2024-11-07 11:23 | disposition home or self-care (01) ==
PROVIDERS: PCP Nurse Practitioner Family; Visit Provider Nurse Practitioner Family
DX: Z12.31 Encounter for screening mammogram for malignant neoplasm of breast (principal); R92.1 Mammographic calcification found on diagnostic imaging of breast; R92.323 Mammographic fibroglandular density, bilateral breasts
CPT/HCPCS: 77063; 77067

== ENCOUNTER 2024-12-25 10:23 | Outpatient (CLI) | payer MEDICAID, SELFPAY ==
--- NOTE | 2024-12-25 10:30 | CT_ITS ---
WS: [id number] CT CHEST AND ABDOMEN WITH CONTRAST HISTORY: Chronic RIGHT lower chest and rib pain. History of hepatitis C. TECHNIQUE: Axial imaging is performed through the chest and abdomen with IV and oral contrast.. Sagittal and coronal reformats. All CT scans at [facility] use at least one of these dose optimization techniques: automated exposure control; mA and/or kV adjustment per patient size (includes targeted exams where dose is matched to clinical indication); or iterative reconstruction. CONTRAST: Omnipaque 350; 100 mL IV. DLP: 541.94 mGy.cm COMPARISON: 01/26/[address]: Well-aerated lungs. No pulmonary mass or nodule. No pneumonia. Mild atherosclerosis aorta. Normal size pulmonary artery. No pericardial or pleural effusions. Normal size heart. No mediastinal or hilar adenopathy. Normal soft tissues of the chest wall. No destructive bone lesions. No rib lesions are identified. Mild curvature of the lumbar spine. Severe degenerative disc disease at T10-11. Abdomen CT: Normal liver. No hepatic mass. Normal portal vein. Normal spleen. Slightly contracted gallbladder. Normal pancreas and RIGHT adrenal gland. Mild hyperplasia LEFT adrenal gland similar to the study from 01/26/2023. No renal obstruction, solid mass or perinephric stranding. Mild atherosclerosis aorta. Visualized GI tract is negative. There is moderate constipation through the transverse colon, hepatic and splenic flexures but no obstructive pattern. No ascites or adenopathy. CT/CT chest abd w con*[id number] IMPRESSION: 1. No pulmonary mass or nodule. 2. No destructive bone lesions identified. 3. Advanced degenerative disc disease with bony sclerosis at T10-11. 4. Negative liver. 5. No ascites or adenopathy. 6. Constipation.
[2024-12-25] MEDS: iohexol 350 mg/mL 500 mL Btl (per mL) PO (10:56)
[2024-12-25 10:59] LABS: Blood Urea Nitrogen 28 mg/dL (8-23); Glomerular Filtration Rate 72.4 mL/min (90-130)
[2024-12-25] MEDS: iohexol 350 mg/mL 500 mL Btl (per mL) IV (11:06)
== END 2024-12-25 10:24 | disposition home or self-care (01) ==
PROVIDERS: PCP Nurse Practitioner Family; Visit Provider Nurse Practitioner Family
DX: J84.10 Pulmonary fibrosis, unspecified (principal); M51.34 Other intervertebral disc degeneration, thoracic region; K59.00 Constipation, unspecified; I70.0 Atherosclerosis of aorta; M43.8X6 Other specified deforming dorsopathies, lumbar region; E27.8 Other specified disorders of adrenal gland
CPT/HCPCS: 71260; 74160; 82565; 84520

== ENCOUNTER → 2025-03-27 14:41 | Outpatient (BNVA) | payer MEDICAID, SELFPAY | PROVIDERS: PCP Nurse Practitioner Family; Visit Provider Nurse Practitioner Family | DX: E11.9 Type 2 diabetes mellitus without complications (principal) | CPT/HCPCS: 80053; 80061; 83036; 84443; 85025 ==